=== PATIENT | male | born 1955 | race Caucasian/White ===

== ENCOUNTER 2023-06-14 17:45 | Emergency (ER) | payer MEDICARE ==
[~2023-06-14] VITALS: Ht 182.8 cm; Wt 107.0 kg
[2023-06-14] MEDS ORDERED: NS IV 1000 ML 1,000 ML ONE (17:58)
[2023-06-14] MEDS ORDERED: ASPIRIN 81 MG CHEWABLE TABLET ONE (17:58)
[2023-06-14] MEDS ORDERED: dilTIAZem INJ 25 MG/5 ML VIAL ONE (17:58)
[2023-06-14] MEDS ORDERED: NS IV 1000 ML 1,000 ML IV STA (18:02)
--- NOTE | 2023-06-14 18:08 | ED Cardiac General ---
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 PT DENIES NUMBNESS/TINGLING IN EXTREMITIES AND CP AT TIME OF TRIAGE. PT REPORTS HX OF A-FIB. PT A&OX4 Source: patient Exam Limitations: no limitations History of Present Illness Date Seen by Provider: Jun 14, 2023 Time Seen by Provider: 18:06 Initial Comments Patient is a 67yo male who presents to the ER with a complaint of palpitations, feeling light headed and a little dizzy. Symptom onset actually over the last 24 hours. He has a history of remote Afib with ablation- hasnt had any problems with Afib in 10years after the procedure in [place]. He did have about 3 days of n/v/d earlier in the week - thinks he had a viral stomach bug. No actual "chest pain". He is currently not SOB. No recent fevers. no urinary problems (does have enlarged prostate). Not a diabetic. Very active and otherwise "healthy". Timing/Duration: 1-2 days Severity: moderate Activities at Onset: rest NTG SL THROUGH FREIGHT ENGINEER: No ASA po THROUGH FREIGHT ENGINEER: No Associated Systoms: Malaise, Weakness Allergies and Home Medications Allergies Coded Allergies: No Allergy Information Available (Unverified , 04/30/15) Patient Home Medication List Home Medication List Reviewed: Yes Potassium Chloride (K-Tab ER) 20 Meq Tablet.er, 20 MEQ PO DAILY Prescribed by: BARBARA FREED on 06/14/232119 Review of Systems Review of Systems Constitutional: see HPI EENTM: No Symptoms Reported Respiratory: Shortness of Air Cardiovascular: Lightheadedness, Palpitations Gastrointestinal: No Symptoms Reported Genitourinary: No Symptoms Reported Psychiatric/Neurological: Other (light headed) Endocrine: No Symptoms Reported All Other Systems Reviewed Negative Unless Noted: Yes Past Oefonrl-Ftszlk-Qcighe Hx Patient Social History Tobacco Use?: No Substance use?: No Alcohol Use?: Yes Alcohol type: Beer Alcohol Frequency: Once in a while Past Medical History Surgery/Hospitalization HX: HTN, AFIB Physical Exam Vital Signs Vital Signs - First Documented 06/14/23 17:45 Temp 37.3 Pulse 151 Resp 12 B/P (MAP) 132/91 (105) Pulse Ox 100 O2 Delivery Room Air Capillary Refill : Less Than 3 Seconds Height, Weight, BMI Height: '" Weight: lbs. oz. kg; 32.00 BMI Method: General Appearance: No Apparent Distress, WD/WN HEENT: PERRL/EOMI Respiratory: Lungs Clear, Normal Breath Sounds, No Accessory Muscle Use, No Respiratory Distress Cardiovascular: Normal Peripheral Pulses, Irregularly Irregular, Tachycardia (130) Gastrointestinal: Normal Bowel Sounds, Soft Extremity: Normal Inspection, Normal Range of Motion, Non Tender, No Pedal Edema Neurologic/Psychiatric: Alert, Oriented x3, No Motor/Sensory Deficits, Normal Mood/Affect Skin: Normal Color, Warm/Dry Progress/Results/Core Measures Results/Orders Lab Results Laboratory Tests Test 06/14/23 17:49 06/14/23 17:51 Range/Units White Blood Count 8.2 4.3-11.0 10^3/uL Red Blood Count 5.18 4.30-5.52 10^6/uL Hemoglobin 16.4 13.3-17.7 g/dL Hematocrit 46 40-54 % Mean Corpuscular Volume 88 80-99 fL Mean Corpuscular Hemoglobin 32 25-34 pg Mean Corpuscular Hemoglobin Concent 36 32-36 g/dL Red Cell Distribution Width 12.2 10.0-14.5 % Platelet Count 183 130-400 10^3/uL Mean Platelet Volume 9.7 9.0-12.2 fL Immature Granulocyte % (Auto) 0 % Neutrophils (%) (Auto) 29 L 42-75 % Lymphocytes (%) (Auto) 60 H 12-44 % Monocytes (%) (Auto) 8 0-12 % Eosinophils (%) (Auto) 2 0-10 % Basophils (%) (Auto) 0 0-10 % Neutrophils # (Auto) 2.4 1.8-7.8 X 10^3 Lymphocytes # (Auto) 4.9 H 1.0-4.0 X 10^3 Monocytes # (Auto) 0.7 0.0-1.0 X 10^3 Eosinophils # (Auto) 0.2 0.0-0.3 10^3/uL Basophils # (Auto) 0.0 0.0-0.1 10^3/uL Immature Granulocyte # (Auto) 0.0 0.0-0.1 10^3/uL Prothrombin Time 12.9 12.2-14.7 SEC INR Comment 1.0 0.8-1.4 Activated Partial Thromboplast Time 33 24-35 SEC Sodium Level 139 135-145 MMOL/L Potassium Level 2.8 L 3.6-5.0 MMOL/L Chloride Level 101 98-107 MMOL/L Carbon Dioxide Level 23 21-32 MMOL/L Anion Gap 15 H 5-14 MMOL/L Blood Urea Nitrogen 19 H 7-18 MG/DL Creatinine 0.98 0.60-1.30 MG/DL Estimat Glomerular Filtration Rate 83 BUN/Creatinine Ratio 19 Glucose Level 101 70-105 MG/DL Calcium Level 9.5 8.5-10.1 MG/DL Corrected Calcium 9.3 8.5-10.1 MG/DL Magnesium Level 2.3 1.6-2.4 MG/DL Total Bilirubin 1.6 H 0.1-1.0 MG/DL Aspartate Amino Transf (AST/SGOT) 26 5-34 U/L Alanine Aminotransferase (ALT/SGPT) 23 0-55 U/L Alkaline Phosphatase 44 40-136 U/L Troponin I < 0.028 <0.028 NG/ML Total Protein 7.4 6.4-8.2 GM/DL Albumin 4.3 3.2-4.5 GM/DL Glucometer 108 70-110 MG/DL My Orders Orders - BARBARA FREED MD Cbc And Automated Diff (06/14/23 18:02) Magnesium (06/14/23 18:02) Chest 1 View, Ap/Pa Only (06/14/23 18:02) Comprehensive Metabolic Panel (06/14/23 18:) Protime With Inr (06/14/23 18:02) Partial Thromboplastin Time (06/14/23 18:02) O2 (06/14/23 18:02) Monitor-Rhythm Ecg Trace Only (06/14/23 18:02) Ed Iv/Invasive Line Start (06/14/23 18:02) Troponin I [place] (06/14/23 18:02) Diltiazem Injection (Diltiazem Injection (06/14/23 18:15) Ns Iv 1000 Ml (Ns Iv 1000 Ml) (06/14/23 18:02) Aspirin Chewable Tablet (Aspirin Chewabl (06/14/23 18:15) Ekg Tracing (06/14/23 19:02) Ekg Tracing (06/14/23 19:02) Potassium Cl 10meq/50ml Ivpb (Kcl 10 Meq (06/14/23 19:15) Ns Iv 1000 Ml (Ns Iv 1000 Ml) (06/14/23 19:15) Potassium Chloride (Tablet) (Potassium C (06/14/23 19:15) Medications Given in ED Current Medications Medications Dose Ordered Sig/Rob Route Start Time Stop Time Status Last Admin Dose Admin Aspirin 324 mg ONCE ONCE PO 06/14/23 18:15 06/14/23 18:16 DC 06/14/23 18:09 324 MG Diltiazem HCl 20 mg ONCE ONCE IVP 06/14/23 18:15 06/14/23 18:16 DC 06/14/23 18:05 20 MG Potassium Chloride 40 meq ONCE ONCE PO 06/14/23 19:15 06/14/23 19:16 DC 06/14/23 19:19 40 MEQ Vital Signs/I&O 06/14/23 06/14/23 06/14/23 17:45 18:05 21:27 Temp 37.3 Pulse 151 112 68 Resp 12 12 B/P (MAP) 132/91 (105) 121/97 122/86 Pulse Ox 100 100 O2 Delivery Room Air Room Air Blood Pressure Mean: 105 Progress Progress Note : Time: 21:20 Progress Note Patient seen and evaluated by me - pearl today includes "chest pain" work up with CBC, CMP, coags, troponin, magnesium, EKG x2 and single view CXR. Pertinent physical exam findings include WDWN male in NAD with Afib with RVR running about 120bpm. Lungs are clear. Abd is soft. no LE edema. No neuro complaints or findings. He is not febrile or hypoxic. BP is good. ddx includes afib with rvr, ACS, electrolyte derangement/dehydration Labs independently reviewed and interpreted by me. HIs CBC is normal, CMP reveal s low potassium at 2.8 with slightly elevated Bili as well. Coags WNL, Mag normal and troponin undetectable. HIs initial EKG is afib rvr. CXR unremarkable. Patient is treated in the ED with NS x1 L and a cardizem bolus of 20mg. After fluids he spontaneously converted back in to a NSR - 60's. Once low potassium identified I gave him 2 10meq infusions of potassium and 40meg PO. He was feeling much better at discharge. i did not think, as he maintained the NSR throughout his K+ infusions that he would need admission,. He would like to follow up locally with a carbon sequestration plant engineer, therefore contact information for Dr Cornejo was supplied. I advised dietary supplementation of K+ with dark green leafy veggies and gave him 3 days of potassium pils. Return precautions provided in both verbal and written format. Suspect his 3days of viral GI symptoms caused the low K which may have caused the afib. Initial ECG Impression Date: Jun 14, 2023 Initial ECG Impression Time: 18:10 Initial ECG Rate: 114 Initial ECG Rhythm: A Fib/Flutter Initial ECG Impression: Atrial Fibrillation w/RVR EKG : EKG Time: 19:08 Rate: 62 Rhythm: Normal Sinus ECG Comparisson: Changed Comment NSR with PVC, no ST segment elevation Diagnostic Imaging Diagonstic Imaging: Xray Plain Films/CT/US/NM/MRI: chest Comments [facility], [place] NAME: PRAVEENA AMBROSIO [facility] REC#: [id number] PT STATUS: REG ER : 1955 PHYSICIAN: BARBARA FREED MD ADMIT DATE: 06/14/23/ER Signed Date of Exam:06/14/23 CHEST 1 VIEW, AP/PA ONLY INDICATION: Chest pain. Frontal chest obtained at 0625 p.m. Heart is borderline in size. Mediastinal silhouette is unremarkable. The lungs appear clear. There is no pneumothorax or pleural fluid. IMPRESSION: Mild cardiomegaly. No acute process in the chest. Dictated by: Dictated on workstation # [id number] Dict: 06/14/231834 Trans: 06/14/231927 [facility] [phone] Interpreted by: ELVIA ZACARIAS MD Electronically signed by: ELVIA ZACARIAS MD 06/14/231927 Departure Impression Primary Impression: Atrial fibrillation with rapid ventricular response Additional Impression: Hypokalemia Disposition: 01 HOME, SELF-CARE Condition: Improved Departure-Patient Inst. Decision time for Depature: 21:17 Referrals: MISTI CORNEJO MD, LISA A MD (PCP/Family) Primary Care Physician Patient Instructions: Atrial Septal Defect Repair, Transcatheter Procedure, Child, Hypokalemia (DC) Add. Discharge Instructions: You will need to have your potassium level rechecked in the next 2 to 3 days. Your primary care doctor can order this. In the meantime I have put you on a little potassium supplement once a day for the next 3 days, 20 mEq. You can also increase your dietary intake of dark leafy green vegetables. If you notice your heart rate become irregular and fast again please return to the emergency department for reevaluation. At this point since you have converted back into a normal heart rhythm I do not think that we need to start you on blood thinners. Please call either Dr. Cornejo or Dr. Esquivel's office this week for a follow-up appointment. Scripts Potassium Chloride (K-Tab ER) 20 Meq Tablet.er 20 MEQ PO DAILY for 3 Days, #3 TAB Prov: BARBARA FREED MD 06/14/23 BARBARA FREED MD Jun 14, 2023 18:08
[2023-06-14] MEDS ORDERED: dilTIAZem INJ 25 MG/5 ML VIAL IVP ONE (18:15)
[2023-06-14] MEDS ORDERED: ASPIRIN 81 MG CHEWABLE TABLET PO ONE (18:15)
[2023-06-14 18:16] LABS: BASOPHILS % (AUTO) 0 % (0-10); EOSINOPHILS # (AUTO) 0.2 10^3/uL (0.0-0.3); EOSINOPHILS % (AUTO) 2 % (0-10); HEMATOCRIT 46 % (40-54); HEMOGLOBIN 16.4 g/dL (13.3-17.7); LYMPHOCYTES # (AUTO) 4.9 X 10^3 (1.0-4.0); LYMPHOCYTES % (AUTO) 60 % (12-44); MEAN CORPUSCULAR HEMOGLOBIN 32 pg (25-34); MEAN CORPUSCULAR HGB CONC 36 g/dL (32-36); MEAN CORPUSCULAR VOLUME 88 fL (80-99); MEAN PLATELET VOLUME 9.7 fL (9.0-12.2); MONOCYTES # (AUTO) 0.7 X 10^3 (0.0-1.0); MONOCYTES % (AUTO) 8 % (0-12); NEUTROPHILS # (AUTO) 2.4 X 10^3 (1.8-7.8); NEUTROPHILS % (AUTO) 29 % (42-75); PLATELET COUNT 183 10^3/uL (130-400); WHITE BLOOD COUNT 8.2 10^3/uL (4.3-11.0)
[2023-06-14 18:25] LABS: ALBUMIN 4.3 GM/DL (3.2-4.5)
[2023-06-14 18:26] LABS: CHLORIDE 101 MMOL/L (98-107); POTASSIUM 2.8 MMOL/L (3.6-5.0); SODIUM 139 MMOL/L (135-145)
[2023-06-14 18:27] LABS: CALCIUM 9.5 MG/DL (8.5-10.1)
[2023-06-14 18:28] LABS: GLUCOSE 101 MG/DL (70-105); TOTAL PROTEIN 7.4 GM/DL (6.4-8.2)
[2023-06-14 18:29] LABS: CARBON DIOXIDE 23 MMOL/L (21-32)
[2023-06-14 18:30] LABS: BILIRUBIN,TOTAL 1.6 MG/DL (0.1-1.0)
[2023-06-14 18:31] LABS: ALKALINE PHOSPHATASE 44 U/L (40-136)
[2023-06-14 18:32] LABS: CREATININE SERUM 0.98 MG/DL (0.60-1.30); GFR ESTIMATED 83; PROTHROMBIN TIME PATIENT 12.9 SEC (12.2-14.7)
[2023-06-14 18:33] LABS: BUN/CREATININE RATIO 19
[2023-06-14 18:35] LABS: ALANINE AMINOTRANSFERASE 23 U/L (0-55); MAGNESIUM 2.3 MG/DL (1.6-2.4)
--- NOTE | 2023-06-14 18:38 | Diagnostic Imaging Report ---
INDICATION: Chest pain. Frontal chest obtained at 0625 p.m. Heart is borderline in size. Mediastinal silhouette is unremarkable. The lungs appear clear. There is no pneumothorax or pleural fluid. IMPRESSION: Mild cardiomegaly. No acute process in the chest. Dictated by: Dictated on workstation # [id number]
[2023-06-14] MEDS ORDERED: POTASSIUM CHLORIDE 20 MEQ TABLET PO ONE (19:15)
[2023-06-14] MEDS ORDERED: NS IV 1000 ML 1,000 ML IV SCH (19:15)
[2023-06-14] MEDS: POTASSIUM CL 10MEQ/50ML IVPB 50 ML IV SCH ×2 (19:19→20:24)
[2023-06-14] MEDS ORDERED: POTA-53 PO (21:20)
[2023-06-14 21:27] VITALS: BP 122/86
== END 2023-06-14 21:27 | disposition home or self-care (01) ==
LOC: EDUNIT# 17:45 → ER 17:47
DX: I48.20 Chronic atrial fibrillation, unspecified (principal); E87.6 Hypokalemia
CPT/HCPCS: 36415; 71045; 80053; 82947; 83735; 84484; 85025; 85610; 85730; 93005; 93041